=== PATIENT | male | born 1960 | race Caucasian/White ===

== ENCOUNTER → 2017-07-16 | Outpatient (REF) | payer BC, OTHER ==
[2017-07-16 13:45] LABS: INFLUENZA A AMPLIFICATION POSITIVE (NEGATIVE); INFLUENZA B AMPLIFICATION NEGATIVE (NEGATIVE)
== END ==
LOC: M SFHCLERA 10:26
DX: J02.9 Acute pharyngitis, unspecified (principal)

== ENCOUNTER → 2018-02-20 | Outpatient (CLI) | payer BC, OTHER | LOC: M LRY 10:26 | DX: M79.671 Pain in right foot (principal) | CPT/HCPCS: 73630 ==

== ENCOUNTER → 2018-11-20 | Outpatient (CLI) | payer BC, OTHER ==
[~2018-11-20] MED LIST: COUM2.5T17 PO; GLUCOSAMINE PO; METHYLSULFONYLMETHANE PO; ONE A DAY VITAMIN PO; PERCOCET PO; TYLE325T5 PO
--- NOTE | 2018-11-21 09:25 | REP ---
RIGHT FOOT, FOUR VIEWS: There is no evidence of an acute fracture, dislocation or intrinsic bone disease. IMPRESSION: No fracture or dislocation. Electronically Signed by Baljinder Penaloza MD 11/21/2018 04:25 P
--- NOTE | 2018-11-21 09:25 | REP ---
RIGHT ANKLE SERIES: Four views of the right ankle performed. There is a nondisplaced fracture of the posterior malleolus of the distal tibia. The adjacent fibula is intact. The ankle mortise is anatomic. IMPRESSION: Nondisplaced fracture posterior malleolus of distal tibia. Electronically Signed by Baljinder Penaloza MD 11/21/2018 04:25 P
== END ==
LOC: M LRY 17:31
PROVIDERS: ATTEND Nurse Practitioner Family
DX: S82.54XA Nondisplaced fracture of medial malleolus of right tibia, initial encounter for closed fracture (principal); X58.XXXA Exposure to other specified factors, initial encounter; Y92.9 Unspecified place or not applicable